=== PATIENT | female | born 1955 | race Caucasian/White ===

== ENCOUNTER 2018-03-15 05:56 | Observation (INO) | payer OTHER ==
[2018-03-14 15:59] VITALS: BP 133/63
[2018-03-14 16:06] LABS: BASOPHILS % (AUTO) 0.8 % (0.0-5.0); EOSINOPHILS % (AUTO) 1.9 % (0.0-8.0); HEMATOCRIT 43.2 % (36-48); LYMPHOCYTES % (AUTO) 32.8 % (21.0-51.0); MEAN CORPUSCULAR HEMOGLOBIN 29.6 pg (27.0-33.0); MEAN CORPUSCULAR HGB CONC 33.5 g/dL (32.0-36.0); MEAN CORPUSCULAR VOLUME 88.2 fL (79-99); MONOCYTES % (AUTO) 6.1 % (3.0-13.0); NEUTROPHILS % (AUTO) 58.4 % (40.0-77.0); PLATELET COUNT (AUTO) 315 K/uL (130-400); RED CELL DISTRIBUTION WIDTH 13.8 % (11.0-15.5); WHITE BLOOD COUNT (AUTO) 10.6 K/uL (4.8-10.8)
[2018-03-15] VITALS (20 sets, daily range): BP systolic 102–164; BP diastolic 46–83
[~2018-03-15] VITALS: Ht 154.9 cm; Wt 95.0 kg
[~2018-03-15 05:56] MED LIST: AMIT25TA9 PO; FURO20TA4 PO; LISI-613 PO; PITA4TAB2 PO; SITA100T12 PO
[2018-03-15 06:43] LABS: CREATININE 0.7 mg/dL (0.5-1.5); POTASSIUM 4.1 mmol/L (3.5-5.1)
[2018-03-15] MEDS ORDERED: SODIUM CHLORIDE 0.9% 1000ML 1,000 ML IV ONE (07:01)
[2018-03-15] MEDS ORDERED: SCOPOLAMINE HYDROBROMIDE 1 EACH ADH..PATCH TD ONE (07:15)
[2018-03-15] MEDS ORDERED: CALDOLOR 800MG+NS 250ML 250 ML IV ONE (07:21)
[2018-03-15] MEDS: CEFAZOLIN SODIUM 1 GM VIAL ONE ×2 (07:32→09:44)
[2018-03-15] MEDS ORDERED: MIDAZOLAM HCL 1 MG/ML 2ML VIAL ONE ×3 (07:51→11:52)
[2018-03-15] MEDS ORDERED: AMIT50TA3 PO (07:57)
[2018-03-15] MEDS ORDERED: CEFAZOLIN 3GM /D5W 100ML 100 ML IV PRN (08:00)
[2018-03-15] MEDS ORDERED: LIDOCAINE PF 2% 5ML ABBOJECT ONE (08:34)
[2018-03-15] MEDS ORDERED: FENTANYL CITRATE PF 50 MCG/1 ML 5ML AMP IV ONE (08:35)
[2018-03-15] MEDS ORDERED: PROPOFOL 10 MG/ML 20ML VIAL IV ONE (08:35)
[2018-03-15] MEDS ORDERED: ROCURONIUM 10MG/1ML SYR 10 MG/ML ML ONE (08:39)
[2018-03-15] MEDS ORDERED: GLYCOPYRROLATE 1 MG/5 ML SYRINGE ONE (08:39)
[2018-03-15] MEDS ORDERED: NEOSTIGMINE 5MG/5ML SYR IV ONE (08:39)
[2018-03-15] MEDS ORDERED: ONDANSETRON HCL 4 MG/2 ML VIAL ONE ×2 (08:58→10:46)
[2018-03-15] MEDS ORDERED: ESTROGENS,CONJUGATED 0.625 MG/GM 42.5 GM VAG CRM VG ONE (10:07)
[2018-03-15] MEDS ORDERED: SCOPOLAMINE HYDROBROMIDE 1 EACH ADH..PATCH TD SCH (10:30)
[2018-03-15] MEDS ORDERED: BUPIVACAINE/PF 0.25% 50ML VIAL IJ ONE (10:41)
[2018-03-15] MEDS ORDERED: FENTANYL 50 MCG/HR PATCH TD ONE (11:04)
[2018-03-15] MEDS ORDERED: HYDROMORPHONE 1 MG/1 ML AMP ONE (11:06)
[2018-03-15] MEDS ORDERED: OPIUM/BELLADONNA ALKALOIDS 1 EACH SUPP.RECT RC ONE (11:32)
[2018-03-15] MEDS ORDERED: HYDROCODONE/ACETAMINOPHEN 5/325 MG TAB PO PRN ×2 (13:00)
[2018-03-15] MEDS: SODIUM CHLORIDE 0.9% 1000ML 1,000 ML IV SCH ×2 (14:38→19:07)
[2018-03-15] MEDS: MEPERIDINE-PF 50 MG/ML SYG IM PRN ×2 (14:44→19:09)
[2018-03-15] MEDS: PROMETHAZINE HCL 25 MG/ML 1ML AMPULE IM PRN ×2 (14:44→19:10)
[2018-03-15] MEDS: CALDOLOR 800MG+NS 250ML 250 ML IV SCH (19:06)
[2018-03-15] MEDS: CYCLOBENZAPRINE HCL 10 MG TABLET PO PRN (20:55)
[2018-03-16 00:03] VITALS: BP 121/60
[2018-03-16] MEDS: PROMETHAZINE HCL 25 MG/ML 1ML AMPULE IM PRN ×2 (00:21→06:38)
[2018-03-16] MEDS: MEPERIDINE-PF 50 MG/ML SYG IM PRN ×2 (00:22→06:37)
[2018-03-16] MEDS ORDERED: CALDOLOR 800MG+NS 250ML 250 ML IV ONE (02:56)
[2018-03-16] MEDS: CALDOLOR 800MG+NS 250ML 250 ML IV SCH (02:58)
[2018-03-16] MEDS: SODIUM CHLORIDE 0.9% 1000ML 1,000 ML IV SCH (03:23)
[2018-03-16 03:40] VITALS: BP 113/57
[2018-03-16 07:13] VITALS: BP 100/50
[2018-03-16] MEDS ORDERED: LISINOPRIL 20 MG TABLET PO SCH (08:00)
[2018-03-16] MEDS: CYCLOBENZAPRINE HCL 10 MG TABLET PO PRN (08:34)
[2018-03-16] MEDS ORDERED: AMITRIPTYLINE HCL 25 MG TABLET PO SCH (09:00)
[2018-03-16] MEDS ORDERED: FUROSEMIDE 20 MG TABLET PO SCH (09:00)
== END 2018-03-16 11:30 | disposition home or self-care (01) ==
LOC: DAH 05:56 → DAHIP 05:57 → WSH 12:04
PROVIDERS: ADMIT Obstetrics & Gynecology; ATTEND Obstetrics & Gynecology
DX: N39.3 Stress incontinence (female) (male) (principal); N81.6 Rectocele; N81.10 Cystocele, unspecified; N90.60 Unspecified hypertrophy of vulva
CPT/HCPCS: 36415 ×2; 56620; 57260; 80048; 85025; 86850; 86900; 86901; 96365; 96372 ×2; A4218; A4344; A4351; A4510; A4600; G0378 ×30; J0690; J1170; J1741 ×3; J2001; J2175 ×4; J2250 ×3; J2405 ×2; J2550 ×4; J2704; J2710; J3010; J3490 ×2; J7030 ×3

== ENCOUNTER 2019-03-18 13:54 | Emergency (ER) | payer OTHER ==
[~2019-03-18 13:54] MED LIST changes: -AMIT25TA9 PO; +AMIT50TA3 PO
[2019-03-18] MEDS ORDERED: HYDROCODONE/ACETAMINOPHEN 10/325 MG TAB ONE (14:51)
[2019-03-18] MEDS ORDERED: CYCLOBENZAPRINE HCL 10 MG TABLET ONE (14:51)
[2019-03-18] MEDS ORDERED: ONDANSETRON ODT 4 MG TAB ONE (14:53)
== END 2019-03-18 16:39 | disposition home or self-care (01) ==
LOC: EDH 13:54
DX: M25.561 Pain in right knee (principal); E11.9 Type 2 diabetes mellitus without complications; E78.00 Pure hypercholesterolemia, unspecified; I10 Essential (primary) hypertension; Z88.8 Allergy status to other drugs, medicaments and biological substances; Z90.710 Acquired absence of both cervix and uterus; Z98.890 Other specified postprocedural states; Z90.49 Acquired absence of other specified parts of digestive tract
CPT/HCPCS: 73562

== ENCOUNTER 2019-04-16 10:00 | Observation (INO) | payer OTHER ==
[~2019-04-16] VITALS: Ht 154.9 cm; Wt 93.0 kg
[~2019-04-16 10:00] MED LIST changes: -AMIT50TA3 PO; -SITA100T12 PO
[2019-04-16 12:45] VITALS: BP 126/73
[2019-04-16 12:59] LABS: BASOPHILS % (AUTO) 1.1 % (0.0-5.0); EOSINOPHILS % (AUTO) 1.3 % (0.0-8.0); HEMATOCRIT 42.2 % (36-48); LYMPHOCYTES % (AUTO) 35.4 % (21.0-51.0); MEAN CORPUSCULAR HEMOGLOBIN 29.7 pg (27.0-33.0); MEAN CORPUSCULAR HGB CONC 33.6 g/dL (32.0-36.0); MEAN CORPUSCULAR VOLUME 88.6 fL (79-99); MONOCYTES % (AUTO) 5.9 % (3.0-13.0); NEUTROPHILS % (AUTO) 56.3 % (40.0-77.0); PLATELET COUNT (AUTO) 376 K/uL (130-400); RED BLOOD CELL COUNT(AUTO) 4.76 MIL/uL (4.00-5.50); RED CELL DISTRIBUTION WIDTH 14.6 % (11.0-15.5); WHITE BLOOD COUNT (AUTO) 13.5 K/uL (4.8-10.8)
[2019-04-16] MEDS ORDERED: AMIT25TA9 PO (14:28)
[2019-04-16] MEDS ORDERED: PREM125 PO (14:28)
[2019-04-16] MEDS ORDERED: CYAN250010 PO (14:28)
[2019-04-16] MEDS ORDERED: DULA1.5P SQ (14:28)
--- NOTE | 2019-04-17 15:47 | NUR ---
FAXED LABS TO [facility] DUE TO WBC 13.5, NO NEW ORDERS. PER WERO FROM OFFICE
[2019-04-18] VITALS (23 sets, daily range): BP systolic 112–160; BP diastolic 52–97
[2019-04-18] MEDS: CALDOLOR 800MG+NS 250ML 250 ML IV SCH ×4 (06:00→23:56)
[2019-04-18] MEDS: CEFAZOLIN SODIUM 1 GM VIAL IVP SCH ×2 (06:00→07:35)
[2019-04-18] MEDS ORDERED: LACTATED RINGERS 1000ML 1,000 ML IV SCH (06:00)
[2019-04-18] MEDS ORDERED: SODIUM CHLORIDE 0.9% 1000ML 1,000 ML IV ONE (06:27)
[2019-04-18] MEDS ORDERED: PROPOFOL 10 MG/ML 20ML VIAL IV ONE ×2 (07:13→07:28)
[2019-04-18] MEDS ORDERED: ONDANSETRON HCL 4 MG/2 ML VIAL ONE (07:13)
[2019-04-18] MEDS ORDERED: MIDAZOLAM HCL 1 MG/ML 2ML VIAL ONE (07:13)
[2019-04-18] MEDS ORDERED: DEXAMETHASONE SOD PHOSPHATE 10MG/ML 1ML VIAL ONE (07:13)
[2019-04-18] MEDS ORDERED: LIDOCAINE PF 2% 5ML ABBOJECT ONE (07:13)
[2019-04-18] MEDS ORDERED: FENTANYL CITRATE PF 50 MCG/1 ML 2ML VIAL ONE ×2 (07:14→07:47)
[2019-04-18] MEDS ORDERED: ROCURONIUM 10MG/1ML SYR 10 MG/ML ML ONE (07:16)
[2019-04-18] MEDS ORDERED: ROPIVACAINE 0.5% 5MG/ML 30ML IJ ONE (08:29)
[2019-04-18] MEDS ORDERED: GLYCOPYRROLATE 1 MG/5 ML SYRINGE ONE (08:41)
[2019-04-18] MEDS ORDERED: NEOSTIGMINE 5MG/5ML SYR IV ONE (08:41)
[2019-04-18] MEDS ORDERED: MEPERIDINE-PF 25 MG/ML SYG ONE ×5 (09:04→18:51)
[2019-04-18] MEDS ORDERED: MORPHINE SULFATE 2 MG/ML 1ML SYG ONE (09:38)
[2019-04-18] MEDS ORDERED: MEPERIDINE-PF 75 MG/ML SYG IM PRN (10:15)
[2019-04-18] MEDS ORDERED: DiphenhydrAMINE HCL 50 MG/ML VIAL IV PRN ×2 (10:30)
[2019-04-18] MEDS: PROMETHAZINE HCL 25 MG/ML 1ML AMPULE IM PRN ×4 (10:38→23:30)
[2019-04-18] MEDS: MEPERIDINE-PF 50 MG/ML SYG IM PRN ×4 (10:40→23:31)
[2019-04-18] MEDS: INSULIN HUMULIN R 100 UNIT/ML 3ML SQ SCH ×3 (11:30→21:00)
[2019-04-18] MEDS: SODIUM CHLORIDE 0.9% 1000ML 1,000 ML IV SCH (16:03)
--- NOTE | 2019-04-19 02:30 | NUR ---
Activity: Patient assisted to get up in bed ambulated in the Hallway for 15 minutes tolerated it well.
[2019-04-19] MEDS: SODIUM CHLORIDE 0.9% 1000ML 1,000 ML IV SCH (03:08)
[2019-04-19 04:15] VITALS: BP 110/54
[2019-04-19] MEDS: MEPERIDINE-PF 50 MG/ML SYG IM PRN (04:20)
[2019-04-19] MEDS: PROMETHAZINE HCL 25 MG/ML 1ML AMPULE IM PRN (04:21)
--- NOTE | 2019-04-19 06:30 | NUR ---
Joe: Joe Catheter discontinued per M.D. order. Urine clear yellow. Patient tolerated it well.
--- NOTE | 2019-04-19 07:20 | NUR ---
PATIENT ASSESSED AND WAS ASSISTED UP TO BATHROOM AND VOIDED 250CC OF CLEAR YELLOW URINE. INCISION TO ABDOMEN IS UNDER A LARGE FOLD AND AN ABD PAD WAS APPLIED AND REINFORCED CARE OF INCISION. VERBALIZED UNDERSTANDING INSTRUCTIONS GIVEN.
[2019-04-19 07:30] VITALS: BP 122/60
[2019-04-19] MEDS: INSULIN HUMULIN R 100 UNIT/ML 3ML SQ SCH (07:30)
[2019-04-19] MEDS ORDERED: LISINOPRIL 20 MG TABLET PO SCH ×2 (08:00→09:00)
[2019-04-19] MEDS: HYDROCODONE/ACETAMINOPHEN 5/325 MG TAB PO PRN ×2 (08:50→13:50)
[2019-04-19] MEDS ORDERED: **HM** TRULICITY 1.5MG SQ SCH (09:00)
[2019-04-19] MEDS ORDERED: AMITRIPTYLINE HCL 25 MG TABLET PO SCH ×2 (09:00)
[2019-04-19] MEDS ORDERED: ESTROGENS,CONJUGATED 0.625 MG TAB PO SCH (09:00)
[2019-04-19] MEDS ORDERED: FUROSEMIDE 20 MG TABLET PO SCH ×2 (09:00)
[2019-04-19] MEDS ORDERED: LIVALO 4 MG PO SCH (09:00)
--- NOTE | 2019-04-19 09:00 | NUR ---
DR. LUND ROUNDED AND DISCHARGED PATIENT TO HOME. PATIENT INSTRUCTED ON CARE3 AFTER DISCHARGE AND PATIENT VERBALIZED UNDERSTANDING INSTRUCTIONS GIVEN.
--- NOTE | 2019-04-19 14:40 | NUR ---
PATIENT WAS GIVEN DISCHARGE INSTRUCTIONS AND WAS THEN TAKEN VIA W/C TO FAMILY VEHICLE AND WAS DISCHARGED IN STABLE CONDITION. PATIENT INSTRUCTED TO CONTINUE TAKING HER HOME MEDICATIONS AFTER DISCHARGE.
--- NOTE | 2019-04-19 15:40 | NUR ---
PATIENT WAS TAKEN VIA W/C AND WAS DISCHARGED TO HER FAMILY IN STABLE CONDITION.
== END 2019-04-19 15:40 | disposition home or self-care (01) ==
LOC: DAHIP 04-18 05:57 → EDSTATUS 04-18 10:00 → WSH 04-18 10:13
PROVIDERS: ADMIT Obstetrics & Gynecology; ATTEND Obstetrics & Gynecology
DX: N39.3 Stress incontinence (female) (male) (principal); R11.10 Vomiting, unspecified; E66.9 Obesity, unspecified; E11.9 Type 2 diabetes mellitus without complications; M79.7 Fibromyalgia; K66.0 Peritoneal adhesions (postprocedural) (postinfection); I10 Essential (primary) hypertension; Z90.710 Acquired absence of both cervix and uterus; Z90.49 Acquired absence of other specified parts of digestive tract; Z79.899 Other long term (current) drug therapy; Z68.38 Body mass index [BMI] 38.0-38.9, adult
CPT/HCPCS: 36415; 51840; 82948 ×4; 85025; 86850; 86900; 86901; 96361 ×2; 96365; 96366 ×2; 96372 ×2; A4215; A4221; A4222; A4223; A4510; A4600; A4663; A4930; A6260; G0378 ×32; J0690; J1100; J1741 ×4; J2001; J2175 ×10; J2250; J2405; J2550 ×5; J2704 ×2; J2710; J2795; J3010 ×2; J3490; J7030; 96367

== ENCOUNTER → 2019-05-15 | Outpatient (CLI) | payer MEDICARE ==
[~2019-05-15] MED LIST changes: +AMIT25TA9 PO; +CYAN250010 PO; +DULA1.5P SQ; +LIDOCAINE HCL 4% LTA SOL 4 ML VIAL TP ONE; +PREM125 PO
[2019-05-15 16:19] VITALS: BP 114/73
== END | disposition home or self-care (01) ==
LOC: WHH 14:04
PROVIDERS: ATTEND Surgery
DX: T81.31XA Disruption of external operation (surgical) wound, not elsewhere classified, initial encounter (principal); E11.9 Type 2 diabetes mellitus without complications; E66.01 Morbid (severe) obesity due to excess calories; I10 Essential (primary) hypertension; E78.5 Hyperlipidemia, unspecified; Z90.710 Acquired absence of both cervix and uterus; Y83.8 Other surgical procedures as the cause of abnormal reaction of the patient, or of later complication, without mention of misadventure at the time of the procedure; Y92.89 Other specified places as the place of occurrence of the external cause
CPT/HCPCS: 11042; 99215; A4450; A6021; A6197; 99205

== ENCOUNTER → 2019-05-22 | Outpatient (CLI) | payer MEDICARE ==
[~2019-05-22] MED LIST changes: +LIDOCAINE HCL 2% JELLY 5 ML TP ONE; -LIDOCAINE HCL 4% LTA SOL 4 ML VIAL TP ONE
[2019-05-22 12:01] VITALS: BP 137/70
== END | disposition home or self-care (01) ==
LOC: WHH 10:45
PROVIDERS: ATTEND Surgery
DX: T81.31XD Disruption of external operation (surgical) wound, not elsewhere classified, subsequent encounter (principal); E11.9 Type 2 diabetes mellitus without complications; E66.01 Morbid (severe) obesity due to excess calories; I10 Essential (primary) hypertension; E78.5 Hyperlipidemia, unspecified; Z90.710 Acquired absence of both cervix and uterus; Z90.49 Acquired absence of other specified parts of digestive tract; Z79.899 Other long term (current) drug therapy; Y83.8 Other surgical procedures as the cause of abnormal reaction of the patient, or of later complication, without mention of misadventure at the time of the procedure
CPT/HCPCS: 97605

== ENCOUNTER → 2019-06-05 | Outpatient (CLI) | payer MEDICARE ==
[~2019-06-05] MED LIST changes: -LIDOCAINE HCL 2% JELLY 5 ML TP ONE; +LIDOCAINE/PRILOCAINE CREAM 5GM TUBE TP ONE
[2019-06-05 12:29] VITALS: BP 160/72
== END | disposition home or self-care (01) ==
LOC: WHH 10:30
PROVIDERS: ATTEND Surgery
DX: T81.31XD Disruption of external operation (surgical) wound, not elsewhere classified, subsequent encounter (principal); E11.9 Type 2 diabetes mellitus without complications; E66.01 Morbid (severe) obesity due to excess calories; I10 Essential (primary) hypertension; E78.5 Hyperlipidemia, unspecified; Z90.710 Acquired absence of both cervix and uterus; Z90.49 Acquired absence of other specified parts of digestive tract; Z79.899 Other long term (current) drug therapy; Y83.8 Other surgical procedures as the cause of abnormal reaction of the patient, or of later complication, without mention of misadventure at the time of the procedure
CPT/HCPCS: A6022; G0463; J3490

== ENCOUNTER → 2019-06-12 | Outpatient (CLI) | payer MEDICARE ==
[~2019-06-12] MED LIST changes: -LIDOCAINE/PRILOCAINE CREAM 5GM TUBE TP ONE
[2019-06-12 12:49] VITALS: BP 137/79
--- NOTE | 2019-06-12 12:51 | NUR ---
Patient presents to clinic today for wound care. Patient reports that she had a "reaction" to puracol on Sunday through Sunday. She states she removed everything from wound on Sunday and found a rash that was "oozing" so much that dressing was not sticking. Patient reports taking Benadryl x 2 doses (Sunday pm and Sunday) and obtained relief from itching. She states HH nurse went by on Sunday and did not perform the ordered wound care as she felt that was cause of rash and itching episode and she refused. Patient states she has only used saline and clean gauze on wound since Sunday. Dr. Pereira was notified of patient's reports and current wound status. Orders obtained and wound care performed as ordered. Teaching provided re: new wound care order and need for patient to notify [facility] whenever wound issues arise. Patient verbalized understanding. Addendum: 06/12/19 at 1304 by SKYE ORNELAS RN/BEV Amended: Links added.
== END | disposition home or self-care (01) ==
LOC: WHH 10:28
PROVIDERS: ATTEND Emergency Medicine
DX: T81.31XD Disruption of external operation (surgical) wound, not elsewhere classified, subsequent encounter (principal); E11.9 Type 2 diabetes mellitus without complications; E66.01 Morbid (severe) obesity due to excess calories; I10 Essential (primary) hypertension; E78.5 Hyperlipidemia, unspecified; Z90.710 Acquired absence of both cervix and uterus; Z90.49 Acquired absence of other specified parts of digestive tract; Z79.899 Other long term (current) drug therapy; Y83.8 Other surgical procedures as the cause of abnormal reaction of the patient, or of later complication, without mention of misadventure at the time of the procedure
CPT/HCPCS: 99211; G0463

== ENCOUNTER → 2019-06-19 | Outpatient (CLI) | payer MEDICARE ==
[~2019-06-19] MED LIST changes: +LIDOCAINE/PRILOCAINE CREAM 5GM TUBE TP ONE
[2019-06-19 11:42] VITALS: BP 130/68
[2019-06-19 11:48] LABS: BASOPHILS % (AUTO) 0.5 % (0.0-5.0); EOSINOPHILS % (AUTO) 2.5 % (0.0-8.0); LYMPHOCYTES % (AUTO) 32.8 % (21.0-51.0); MEAN CORPUSCULAR HEMOGLOBIN 28.2 pg (27.0-33.0); MEAN CORPUSCULAR HGB CONC 32.6 g/dL (32.0-36.0); MEAN CORPUSCULAR VOLUME 86.5 fL (79-99); MONOCYTES % (AUTO) 7.2 % (3.0-13.0); NEUTROPHILS % (AUTO) 56.6 % (40.0-77.0); PLATELET COUNT (AUTO) 377 K/uL (130-400); RED BLOOD CELL COUNT(AUTO) 4.51 MIL/uL (4.00-5.50); RED CELL DISTRIBUTION WIDTH 13.7 % (11.0-15.5); WHITE BLOOD COUNT (AUTO) 7.9 K/uL (4.8-10.8)
== END | disposition home or self-care (01) ==
LOC: WHH 10:55
PROVIDERS: ATTEND Surgery
DX: T81.89XD Other complications of procedures, not elsewhere classified, subsequent encounter (principal); E11.9 Type 2 diabetes mellitus without complications; I10 Essential (primary) hypertension; E66.01 Morbid (severe) obesity due to excess calories; E78.5 Hyperlipidemia, unspecified; Z90.710 Acquired absence of both cervix and uterus; Z90.49 Acquired absence of other specified parts of digestive tract; Z79.899 Other long term (current) drug therapy; Y83.8 Other surgical procedures as the cause of abnormal reaction of the patient, or of later complication, without mention of misadventure at the time of the procedure
CPT/HCPCS: 36415; 85025; A6209; G0463; J3490

== ENCOUNTER → 2019-07-03 | Outpatient (CLI) | payer MEDICARE ==
[~2019-07-03] MED LIST changes: -LIDOCAINE/PRILOCAINE CREAM 5GM TUBE TP ONE
[2019-07-03 11:22] VITALS: BP 108/65
== END | disposition home or self-care (01) ==
LOC: WHH 10:00
PROVIDERS: ATTEND Surgery
DX: T81.89XD Other complications of procedures, not elsewhere classified, subsequent encounter (principal); E11.9 Type 2 diabetes mellitus without complications; I10 Essential (primary) hypertension; E66.01 Morbid (severe) obesity due to excess calories; E78.5 Hyperlipidemia, unspecified; Z90.710 Acquired absence of both cervix and uterus; Z90.49 Acquired absence of other specified parts of digestive tract; Z79.899 Other long term (current) drug therapy; Y83.8 Other surgical procedures as the cause of abnormal reaction of the patient, or of later complication, without mention of misadventure at the time of the procedure
CPT/HCPCS: A6209; G0463

== ENCOUNTER → 2019-07-10 | Outpatient (CLI) | payer MEDICARE ==
[2019-07-10 13:23] VITALS: BP 153/80
== END | disposition home or self-care (01) ==
LOC: WHH 10:00
PROVIDERS: ATTEND Surgery
DX: T81.89XD Other complications of procedures, not elsewhere classified, subsequent encounter (principal); E11.9 Type 2 diabetes mellitus without complications; I10 Essential (primary) hypertension; E66.01 Morbid (severe) obesity due to excess calories; E78.5 Hyperlipidemia, unspecified; Z90.710 Acquired absence of both cervix and uterus; Z90.49 Acquired absence of other specified parts of digestive tract; Z88.0 Allergy status to penicillin; Z79.899 Other long term (current) drug therapy; Y83.8 Other surgical procedures as the cause of abnormal reaction of the patient, or of later complication, without mention of misadventure at the time of the procedure
CPT/HCPCS: A6209; G0463

== ENCOUNTER → 2019-07-17 | Outpatient (CLI) | payer MEDICARE ==
[~2019-07-17] MED LIST changes: +SILVER NITRATE APPLICATOR 1 SWAB TP ONE
[2019-07-17 13:18] VITALS: BP 134/82
== END | disposition home or self-care (01) ==
LOC: WHH 10:25
PROVIDERS: ATTEND Surgery
DX: T81.89XD Other complications of procedures, not elsewhere classified, subsequent encounter (principal); E11.9 Type 2 diabetes mellitus without complications; I10 Essential (primary) hypertension; E78.5 Hyperlipidemia, unspecified; E66.01 Morbid (severe) obesity due to excess calories; Z79.899 Other long term (current) drug therapy; Z88.0 Allergy status to penicillin; Z90.49 Acquired absence of other specified parts of digestive tract; Z90.710 Acquired absence of both cervix and uterus; Y83.8 Other surgical procedures as the cause of abnormal reaction of the patient, or of later complication, without mention of misadventure at the time of the procedure
CPT/HCPCS: 17250; A6209

== ENCOUNTER 2019-07-24 10:00 | Outpatient (CLI) | payer MEDICARE ==
[~2019-07-24 10:00] MED LIST changes: -SILVER NITRATE APPLICATOR 1 SWAB TP ONE
[2019-07-24 12:49] VITALS: BP 131/83
== END 2019-07-24 14:35 | disposition home or self-care (01) ==
LOC: WHH 10:00
PROVIDERS: ATTEND Surgery
DX: T81.89XD Other complications of procedures, not elsewhere classified, subsequent encounter (principal); E11.9 Type 2 diabetes mellitus without complications; I10 Essential (primary) hypertension; I25.10 Atherosclerotic heart disease of native coronary artery without angina pectoris; E66.01 Morbid (severe) obesity due to excess calories; E78.5 Hyperlipidemia, unspecified; Z79.899 Other long term (current) drug therapy; Z88.0 Allergy status to penicillin; Z90.710 Acquired absence of both cervix and uterus; Z90.49 Acquired absence of other specified parts of digestive tract; Y83.8 Other surgical procedures as the cause of abnormal reaction of the patient, or of later complication, without mention of misadventure at the time of the procedure
CPT/HCPCS: G0463

== ENCOUNTER → 2019-09-12 | Outpatient (CLI) | payer MEDICARE | END | disposition home or self-care (01) | LOC: OIH 12:48 | PROVIDERS: ATTEND Internal Medicine | DX: I50.9 Heart failure, unspecified (principal) | CPT/HCPCS: 71046 ==

== ENCOUNTER → 2019-10-16 | Outpatient (CLI) | payer MEDICARE | END | disposition home or self-care (01) | LOC: RAH 10:37 | PROVIDERS: ATTEND Internal Medicine | DX: N00.9 Acute nephritic syndrome with unspecified morphologic changes (principal) | CPT/HCPCS: 76770 ==

== ENCOUNTER → 2019-11-12 | Outpatient (CLI) | payer MEDICARE | END | disposition home or self-care (01) | LOC: OIH 11:22 | PROVIDERS: ATTEND Internal Medicine | DX: I10 Essential (primary) hypertension (principal); M85.88 Other specified disorders of bone density and structure, other site | CPT/HCPCS: 71046 ==

== ENCOUNTER → 2020-03-30 | Outpatient (CLI) | payer MEDICARE | END | disposition home or self-care (01) | LOC: RAH 14:39 | PROVIDERS: ATTEND Internal Medicine | DX: K43.2 Incisional hernia without obstruction or gangrene (principal) | CPT/HCPCS: 76705 ==

== ENCOUNTER 2020-08-09 13:15 | Inpatient (IN) | payer MEDICARE ==
[~2020-08-09] VITALS: Ht 154.9 cm; Wt 82.1 kg
[~2020-08-09 13:15] MED LIST changes: -LISI-613 PO; +LISI20TA24 PO
[2020-08-09] MEDS ORDERED: LIDOCAINE HCL-MPF 1% 2ML VIAL IJ PRN (14:30)
[2020-08-09] MEDS ORDERED: POTASSIUM CHLORIDE 20MEQ/100ML 100 ML IV PRN (14:30)
[2020-08-09] MEDS ORDERED: ACETAMINOPHEN 325 MG TAB PO PRN (14:30)
[2020-08-09] MEDS ORDERED: DEXTROSE 50%-WATER 50 ML DISP.SYRIN IV PRN (14:30)
[2020-08-09] MEDS ORDERED: CLONIDINE HCL 0.1 MG TABLET PO PRN (14:30)
[2020-08-09] MEDS ORDERED: ZOLPIDEM TARTRATE 5 MG TAB PO PRN (14:30)
[2020-08-09] MEDS ORDERED: POTASSIUM CHLORIDE 10% ELIXIR 20 MEQ/15 ML UDCUP PO PRN (14:30)
[2020-08-09] MEDS ORDERED: 1/2 NS 1000ML 1,000 ML IV SCH (14:30)
[2020-08-09] MEDS ORDERED: GUAIFENESIN-DM 200/20 MG 10 ML PO PRN (14:30)
[2020-08-09] MEDS ORDERED: MAG/ALUM/SIMETH 30 ML UDCUP PO PRN (14:30)
[2020-08-09] MEDS ORDERED: KCL 20 MEQ ERTAB PO PRN (14:30)
[2020-08-09] MEDS ORDERED: GLUCAGON 1MG KIT 1 MG ML IM PRN (14:30)
[2020-08-09] MEDS ORDERED: IPRATROPIUM/ALBUTEROL SULFATE 3 ML SOLUTION IH PRN ×2 (14:30)
[2020-08-09] MEDS ORDERED: ONDANSETRON 4MG INJ IVP PRN (14:30)
[2020-08-09] MEDS ORDERED: DIPHENHYDRAMINE HCL 25 MG CAPSULE PO PRN (14:30)
[2020-08-09] MEDS ORDERED: AZITHROMYCIN 500MG+NS 250ML 250 ML IV ONE (15:00)
[2020-08-09] MEDS ORDERED: AZITHROMYCIN 500MG+NS 250ML 250 ML IV SCH (15:00)
[2020-08-09] MEDS ORDERED: ACETAMINOPHEN 325 MG TAB ONE (15:01)
[2020-08-09] MEDS ORDERED: CEFTRIAXONE 1G VIAL ONE (15:01)
[2020-08-09 15:07] LABS: APPEARANCE,URINE Clear (CLEAR); BASOPHILS % (AUTO) 0.2 % (0.0-5.0); BILIRUBIN,URINE Negative (NEGATIVE); COLOR,URINE Yellow (YELLOW); EOSINOPHILS % (AUTO) 1.9 % (0.0-8.0); GLUCOSE, URINE (UA) Negative (NEGATIVE); HEMATOCRIT 45.3 % (36-48); KETONES,URINE Negative (NEGATIVE); LEUKOCYTE ESTERASE ,URINE Negative (NEGATIVE); LYMPHOCYTES % (AUTO) 39.8 % (21.0-51.0); MEAN CORPUSCULAR HEMOGLOBIN 29.3 pg (27.0-33.0); MEAN CORPUSCULAR HGB CONC 33.6 g/dL (32.0-36.0); MEAN CORPUSCULAR VOLUME 87.5 fL (79-99); MONOCYTES % (AUTO) 5.1 % (3.0-13.0); NEUTROPHILS % (AUTO) 52.5 % (40.0-77.0); NITRATE,URINE Negative (NEGATIVE); OCCULT BLOOD,URINE Negative (NEGATIVE); PLATELET COUNT (AUTO) 398 K/uL (130-400); PROTEIN,URINE Negative (NEGATIVE); RED BLOOD CELL COUNT(AUTO) 5.18 MIL/uL (4.00-5.50); RED CELL DISTRIBUTION WIDTH 13.5 % (11.0-15.5); UROBILINOGEN,URINE 0.2 mg/dL (0.2-1.0); WHITE BLOOD COUNT (AUTO) 12.9 K/uL (4.8-10.8)
[2020-08-09] MEDS ORDERED: ONDANSETRON 4MG INJ ONE ×2 (15:10→21:12)
[2020-08-09 15:52] LABS: CREATININE 0.9 mg/dL (0.5-1.5); POTASSIUM 4.3 mmol/L (3.5-5.1)
[2020-08-09 15:56] LABS: ALBUMIN 3.7 g/dL (3.5-5.0); BILIRUBIN,TOTAL 0.3 mg/dL (0.2-1.0); CRP QUANTITATIVE 5.3 mg/L (0.00-9.0); TOTAL PROTEIN, SERUM 7.6 g/dL (6.0-8.3)
[2020-08-09 16:11] LABS: ERYTHROCYTE SEDIMENTATION RATE 11 MM/HR (0-30)
[2020-08-09] MEDS: INSULIN R PO SSI SQ SCH (16:30)
[2020-08-09] MEDS ORDERED: ALBUTEROL INHALER 90MCG/INH IH SCH (18:00)
[2020-08-09] MEDS ORDERED: IPRATROPIUM/ALBUTEROL SULFATE 3 ML SOLUTION IH SCH (18:00)
[2020-08-09] MEDS ORDERED: HYDROCODONE/ACETAMINOPHEN 5/325 MG TAB ONE (21:12)
[2020-08-09] MEDS ORDERED: VANCOMYCIN 1G/250ML KIT 250 ML IV SCH (22:30)
[2020-08-10] MEDS ORDERED: ZOSYN 3.375GM+NS 50ML 50 ML IV ONE ×4 (01:22→17:03)
[2020-08-10] MEDS ORDERED: ALBUTEROL INHALER 90MCG/INH IH ONE (01:22)
[2020-08-10] MEDS ORDERED: ONDANSETRON 4MG INJ ONE ×3 (03:55→15:31)
[2020-08-10] MEDS ORDERED: HYDROCODONE/ACETAMINOPHEN 5/325 MG TAB ONE ×3 (03:55→17:47)
[2020-08-10] MEDS: ENOXAPARIN SODIUM 40 MG/0.4 ML SYRINGE SQ SCH (09:00)
[2020-08-10] MEDS: ZOSYN 3.375GM+NS 50ML 50 ML IV SCH ×2 (09:00→17:00)
[2020-08-10 09:12] LABS: BASOPHILS % (AUTO) 0.1 % (0.0-5.0); EOSINOPHILS % (AUTO) 2.4 % (0.0-8.0); HEMATOCRIT 39.7 % (36-48); LYMPHOCYTES % (AUTO) 48.7 % (21.0-51.0); MEAN CORPUSCULAR HEMOGLOBIN 28.8 pg (27.0-33.0); MEAN CORPUSCULAR HGB CONC 32.7 g/dL (32.0-36.0); MONOCYTES % (AUTO) 6.3 % (3.0-13.0); NEUTROPHILS % (AUTO) 42.1 % (40.0-77.0); PLATELET COUNT (AUTO) 336 K/uL (130-400); RED BLOOD CELL COUNT(AUTO) 4.51 MIL/uL (4.00-5.50); RED CELL DISTRIBUTION WIDTH 13.7 % (11.0-15.5); WHITE BLOOD COUNT (AUTO) 11.4 K/uL (4.8-10.8)
[2020-08-10 09:19] LABS: CREATININE 0.9 mg/dL (0.5-1.5); POTASSIUM 4.8 mmol/L (3.5-5.1)
[2020-08-10] MEDS ORDERED: FURO40TA5 PO (09:31)
[2020-08-10] MEDS ORDERED: ALPR-410 PO (09:31)
[2020-08-10] MEDS ORDERED: GLIM4TAB36 PO (09:31)
[2020-08-10] MEDS ORDERED: TRAM50TA4 PO (09:31)
[2020-08-10] MEDS ORDERED: LIRA0.6P SQ (09:31)
[2020-08-10] MEDS ORDERED: OMEP40CA21 PO (09:31)
[2020-08-10] MEDS ORDERED: ENOXAPARIN SODIUM 40 MG/0.4 ML SYRINGE SQ ONE (09:43)
[2020-08-10] MEDS ORDERED: SOLU-MEDROL 40MG VIAL IVP SCH (11:00)
[2020-08-10] MEDS: 0.9%NACL 1000ML 1,000 ML IV SCH (11:00)
[2020-08-10 11:47] LABS: AMYLASE 57 U/L (25-115); LIPASE 203 U/L (114-286)
[2020-08-10] MEDS: IPRATROPIUM/ALBUTEROL SULFATE 3 ML SOLUTION IH SCH ×2 (12:00→18:00)
[2020-08-10] MEDS: ALBUTEROL INHALER 90MCG/INH IH SCH ×2 (12:00→18:00)
[2020-08-10] MEDS ORDERED: CEFTRIAXONE 1G VIAL ONE (14:38)
[2020-08-10] MEDS ORDERED: 0.9%NACL 50ML 50 ML IV ONE (14:40)
[2020-08-10 15:51] LABS: ABG BASE EXCESS 1.1 mmol/L (-2.0-3.0); ABG HCO3 26.5 mmol/L (21.0-28.0); ABG OXYGEN SATURATION 96.6 % (95.0-99.0); ABG PCO2 45 mmHg (32-45)
[2020-08-10] MEDS ORDERED: IOHEXOL-350 75 ML VIAL IV ONE (16:38)
[2020-08-10] MEDS ORDERED: 0.9%NACL 1000ML 1,000 ML IV ONE (20:38)
[2020-08-10] MEDS ORDERED: MAGNESIUM CITRATE 296 ML SOLUTION PO ONE (22:15)
[2020-08-10 22:49] LABS: CREATINE KINASE, TOTAL 20 U/L (21-232); LACTATE DEHYDROGENASE 93 U/L (81-234); MYOGLOBIN 20 ng/mL (10-92); TROPONIN I < 0.04 ng/mL (0.00-0.06)
[2020-08-10] MEDS: SOLU-MEDROL 40MG VIAL IVP SCH (23:00)
[2020-08-10] MEDS ORDERED: SOLU-MEDROL 40MG VIAL ONE (23:11)
[2020-08-10] MEDS ORDERED: MAGNESIUM CITRATE 296 ML SOLUTION ONE (23:11)
[2020-08-10 23:25] VITALS: BP 124/70
[2020-08-11] MEDS: ZOSYN 3.375GM+NS 50ML 50 ML IV SCH ×4 (01:15→22:37)
[2020-08-11] MEDS: HYDROCODONE/ACETAMINOPHEN 5/325 MG TAB PO PRN ×4 (02:27→21:00)
[2020-08-11 03:55] VITALS: BP 117/64
[2020-08-11] MEDS: 0.9%NACL 1000ML 1,000 ML IV SCH ×2 (04:42→20:58)
[2020-08-11] MEDS: IPRATROPIUM/ALBUTEROL SULFATE 3 ML SOLUTION IH SCH ×3 (06:00→12:00)
[2020-08-11] MEDS: ALBUTEROL INHALER 90MCG/INH IH SCH ×3 (06:00→12:00)
[2020-08-11 06:14] LABS: HEMATOCRIT 40.3 % (36-48); MEAN CORPUSCULAR HGB CONC 32.3 g/dL (32.0-36.0); MEAN CORPUSCULAR VOLUME 89.8 fL (79-99); RED BLOOD CELL COUNT(AUTO) 4.49 MIL/uL (4.00-5.50); RED CELL DISTRIBUTION WIDTH 13.6 % (11.0-15.5)
[2020-08-11] MEDS: INSULIN R PO SSI SQ SCH ×4 (06:35→21:06)
[2020-08-11 07:03] LABS: ALANINE AMINOTRANSFERASE 32 U/L (12-78); ASPARTATE AMINOTRANSFERASE 22 U/L (10-37); BILIRUBIN,TOTAL 0.3 mg/dL (0.2-1.0); CARBON DIOXIDE 24 mmol/L (21-32); CHLORIDE 103 mmol/L (101-111); CREATINE KINASE, TOTAL 26 U/L (21-232); GLOMERULAR FILTR. RATE CALC 59 mL/min (>60); GLUCOSE,RANDOM 219 mg/dL (70-105); MYOGLOBIN 18 ng/mL (10-92); POTASSIUM 4.7 mmol/L (3.5-5.1); SODIUM SERUM 136 mmol/L (136-145); TOTAL PROTEIN, SERUM 6.5 g/dL (6.0-8.3); TROPONIN I < 0.04 ng/mL (0.00-0.06); UREA NITROGEN, BLOOD 12 mg/dL (7-18)
[2020-08-11 08:05] VITALS: BP 120/60
[2020-08-11] MEDS: SOLU-MEDROL 40MG VIAL IVP SCH ×2 (10:45→22:36)
[2020-08-11] MEDS: ENOXAPARIN SODIUM 40 MG/0.4 ML SYRINGE SQ SCH (10:45)
[2020-08-11 11:13] VITALS: BP 126/63
[2020-08-11 16:33] VITALS: BP 120/53
[2020-08-11] MEDS: CEFTRIAXONE 1G VIAL IVP SCH ×2 (17:03→17:04)
[2020-08-11 20:04] VITALS: BP 105/49
[2020-08-12 00:17] VITALS: BP 131/49
[2020-08-12] MEDS: IPRATROPIUM/ALBUTEROL SULFATE 3 ML SOLUTION IH SCH ×3 (00:56→12:19)
[2020-08-12] MEDS: ZOSYN 3.375GM+NS 50ML 50 ML IV SCH ×2 (01:00→10:46)
[2020-08-12] MEDS: 0.9%NACL 1000ML 1,000 ML IV SCH (03:00)
[2020-08-12 04:13] VITALS: BP 111/50
[2020-08-12] MEDS: INSULIN R PO SSI SQ SCH ×2 (06:04→11:30)
[2020-08-12 07:30] VITALS: BP 115/35
[2020-08-12] MEDS: ENOXAPARIN SODIUM 40 MG/0.4 ML SYRINGE SQ SCH (10:46)
[2020-08-12] MEDS: SOLU-MEDROL 40MG VIAL IVP SCH (10:46)
[2020-08-12] MEDS: HYDROCODONE/ACETAMINOPHEN 5/325 MG TAB PO PRN ×2 (10:57→14:59)
[2020-08-12 11:00] VITALS: BP 134/69
[2020-08-12] MEDS: CEFTRIAXONE 1G VIAL IVP SCH (14:58)
== END 2020-08-12 15:55 | disposition home or self-care (01) | DRG 202 ==
LOC: EDH 13:15 → EDHIP 13:16 → 3BH 08-10 22:34
PROVIDERS: ADMIT Internal Medicine; ATTEND Internal Medicine
DX: J20.9 Acute bronchitis, unspecified (principal); J96.90 Respiratory failure, unspecified, unspecified whether with hypoxia or hypercapnia; M79.7 Fibromyalgia; K59.00 Constipation, unspecified; G89.29 Other chronic pain; F41.9 Anxiety disorder, unspecified; E11.65 Type 2 diabetes mellitus with hyperglycemia; Z20.822 Contact with and (suspected) exposure to COVID-19; E78.5 Hyperlipidemia, unspecified; E78.00 Pure hypercholesterolemia, unspecified; E86.0 Dehydration; I10 Essential (primary) hypertension; Z82.49 Family history of ischemic heart disease and other diseases of the circulatory system; Z88.1 Allergy status to other antibiotic agents; Z88.8 Allergy status to other drugs, medicaments and biological substances; Z90.49 Acquired absence of other specified parts of digestive tract; Z90.710 Acquired absence of both cervix and uterus; Z79.899 Other long term (current) drug therapy
CPT/HCPCS: 36415; 36600; 71046; 71250; 74176; 78582; 80048; 80053; 81003; 82150; 82550; 82728; 82803; 82948; 83615; 83690; 83874; 84484; 85025; 85027; 85378; 85651; 86140; 87040; 87426; 93005; 93970; 94640; 94664; A9540; A9558; G0378; J0456; J0696; J1650; J1815; J2405; J2543; J2920; J7030; Q0163; Q9967; U0003

== ENCOUNTER 2020-09-01 14:29 | Inpatient (IN) | payer MEDICARE ==
[~2020-09-01] VITALS: Ht 154.9 cm; Wt 88.5 kg
[~2020-09-01 14:29] MED LIST changes: +ALPR-410 PO; -DULA1.5P SQ; +FURO40TA5 PO; +GLIM4TAB36 PO; +LIRA0.6P SQ; +OMEP40CA21 PO; +TRAM50TA4 PO
[2020-09-01] MEDS: ENOXAPARIN SODIUM 80 MG/0.8 ML SQ SCH (15:42)
[2020-09-01] MEDS ORDERED: GLUCAGON 1MG KIT 1 MG ML IM PRN (15:45)
[2020-09-01] MEDS ORDERED: NITROGLYCERIN 0.4 MG SL TAB SL PRN (15:45)
[2020-09-01] MEDS ORDERED: DEXTROSE 50%-WATER 50 ML DISP.SYRIN IV PRN (15:45)
[2020-09-01] MEDS ORDERED: ONDANSETRON 4MG INJ IVP PRN (15:45)
[2020-09-01 15:46] LABS: BASOPHILS % (AUTO) 0.5 % (0.0-5.0); EOSINOPHILS % (AUTO) 1.1 % (0.0-8.0); HEMATOCRIT 39.9 % (36-48); LYMPHOCYTES % (AUTO) 33.8 % (21.0-51.0); MEAN CORPUSCULAR HGB CONC 32.6 g/dL (32.0-36.0); MEAN CORPUSCULAR VOLUME 89.1 fL (79-99); MONOCYTES % (AUTO) 5.5 % (3.0-13.0); NEUTROPHILS % (AUTO) 58.4 % (40.0-77.0); PLATELET COUNT (AUTO) 463 K/uL (130-400); RED BLOOD CELL COUNT(AUTO) 4.48 MIL/uL (4.00-5.50); RED CELL DISTRIBUTION WIDTH 13.8 % (11.0-15.5); WHITE BLOOD COUNT (AUTO) 13.2 K/uL (4.8-10.8)
[2020-09-01 15:59] LABS: INR 0.94 (0.85-1.15); PROTHROMBIN TIME 10.3 SEC (9.6-11.6)
[2020-09-01] MEDS: CEFTRIAXONE 1G VIAL IVP SCH (16:00)
[2020-09-01 16:16] LABS: APPEARANCE,URINE Clear (CLEAR); BILIRUBIN,URINE Negative (NEGATIVE); COLOR,URINE Yellow (YELLOW); GLUCOSE, URINE (UA) Negative (NEGATIVE); KETONES,URINE Trace mg/dL (NEGATIVE); LEUKOCYTE ESTERASE ,URINE Negative (NEGATIVE); NITRATE,URINE Negative (NEGATIVE); OCCULT BLOOD,URINE Negative (NEGATIVE); PROTEIN,URINE Negative (NEGATIVE); UROBILINOGEN,URINE 0.2 mg/dL (0.2-1.0)
[2020-09-01] MEDS ORDERED: ENOXAPARIN SODIUM 80 MG/0.8 ML SQ ONE (16:23)
[2020-09-01 16:24] LABS: ALBUMIN 3.2 g/dL (3.5-5.0); BILIRUBIN,TOTAL 0.2 mg/dL (0.2-1.0); CREATININE 0.7 mg/dL (0.5-1.5); CRP QUANTITATIVE 7.3 mg/L (0.00-9.0); POTASSIUM 3.9 mmol/L (3.5-5.1)
[2020-09-01 16:25] LABS: CREATINE KINASE, TOTAL 58 U/L (21-232); MYOGLOBIN 23 ng/mL (10-92); TROPONIN I < 0.04 ng/mL (0.00-0.06)
[2020-09-01] MEDS: INSULIN R PO SSI SQ SCH ×2 (16:30→21:00)
[2020-09-01 16:58] LABS: ERYTHROCYTE SEDIMENTATION RATE 16 MM/HR (0-30)
[2020-09-01] MEDS ORDERED: 0.9%NACL 50ML 50 ML IV ONE (18:13)
[2020-09-01] MEDS ORDERED: CEFTRIAXONE 1G VIAL ONE (18:13)
[2020-09-01] MEDS ORDERED: PANTOPRAZOLE 40 MG/VIAL ONE (20:30)
[2020-09-01 23:41] VITALS: BP 143/79
[2020-09-02] VITALS (7 sets, daily range): BP systolic 99–135; BP diastolic 42–85
[2020-09-02] MEDS: ACETAMINOPHEN 325 MG TAB PO PRN ×3 (02:39→15:47)
[2020-09-02 04:10] LABS: BASOPHILS % (AUTO) 0.4 % (0.0-5.0); EOSINOPHILS % (AUTO) 1.1 % (0.0-8.0); HEMATOCRIT 35.6 % (36-48); MEAN CORPUSCULAR HEMOGLOBIN 29.5 pg (27.0-33.0); MEAN CORPUSCULAR HGB CONC 32.9 g/dL (32.0-36.0); MEAN CORPUSCULAR VOLUME 89.7 fL (79-99); MONOCYTES % (AUTO) 5.6 % (3.0-13.0); NEUTROPHILS % (AUTO) 58.4 % (40.0-77.0); PLATELET COUNT (AUTO) 394 K/uL (130-400); RED BLOOD CELL COUNT(AUTO) 3.97 MIL/uL (4.00-5.50); WHITE BLOOD COUNT (AUTO) 11.6 K/uL (4.8-10.8)
[2020-09-02 04:41] LABS: ALBUMIN 2.7 g/dL (3.5-5.0); BILIRUBIN,TOTAL 0.2 mg/dL (0.2-1.0); CREATININE 0.8 mg/dL (0.5-1.5); CRP QUANTITATIVE 4.3 mg/L (0.00-9.0); POTASSIUM 4.3 mmol/L (3.5-5.1); TOTAL PROTEIN, SERUM 5.9 g/dL (6.0-8.3)
[2020-09-02 05:19] LABS: ERYTHROCYTE SEDIMENTATION RATE 21 MM/HR (0-30)
[2020-09-02] MEDS ORDERED: SOLU-MEDROL 125MG VIAL IVP SCH (06:45)
[2020-09-02] MEDS ORDERED: SOLU-MEDROL 125MG VIAL ONE (06:49)
[2020-09-02] MEDS: INSULIN R PO SSI SQ SCH ×4 (07:30→21:10)
[2020-09-02] MEDS: ENOXAPARIN SODIUM 80 MG/0.8 ML SQ SCH (08:31)
[2020-09-02] MEDS: PANTOPRAZOLE 40 MG TAB DR PO SCH (08:32)
[2020-09-02] MEDS: CEFTRIAXONE 1G VIAL IVP SCH (15:49)
[2020-09-03 04:28] VITALS: BP 120/56
[2020-09-03] MEDS: ACETAMINOPHEN 325 MG TAB PO PRN ×2 (06:38→11:56)
[2020-09-03] MEDS: INSULIN R PO SSI SQ SCH ×4 (06:40→20:47)
[2020-09-03 08:38] VITALS: BP 114/46
[2020-09-03] MEDS: PANTOPRAZOLE 40 MG TAB DR PO SCH (08:56)
[2020-09-03] MEDS: ENOXAPARIN SODIUM 80 MG/0.8 ML SQ SCH (08:57)
[2020-09-03 11:46] VITALS: BP 135/65
[2020-09-03] MEDS: NITROGLYCERIN 1GM OINT 1 INCH/1GM TD SCH ×2 (11:57→18:50)
[2020-09-03] MEDS ORDERED: LINA145C PO (15:24)
[2020-09-03] MEDS ORDERED: MIRA25TA PO (15:24)
[2020-09-03] MEDS ORDERED: APIX5TAB PO (15:42)
[2020-09-03] MEDS ORDERED: CHOL2400 MC (15:42)
[2020-09-03] MEDS ORDERED: CYCL-309 PO (15:42)
[2020-09-03] MEDS ORDERED: ONDA-104 PO (15:42)
[2020-09-03] MEDS ORDERED: LORA10TA7 PO (15:42)
[2020-09-03 16:30] VITALS: BP 115/59
[2020-09-03] MEDS: CEFTRIAXONE 1G VIAL IVP SCH ×2 (18:49→19:03)
[2020-09-03 19:00] VITALS: BP 121/55
[2020-09-03] MEDS ORDERED: TRAMADOL HCL 50 MG TABLET PO ONE (22:15)
[2020-09-03] MEDS ORDERED: TRAMADOL HCL 50 MG TABLET ONE (22:19)
[2020-09-03] MEDS: ZOLPIDEM TARTRATE 5 MG TAB PO PRN (22:43)
[2020-09-04] VITALS (7 sets, daily range): BP systolic 104–122; BP diastolic 43–73
[2020-09-04] MEDS: NITROGLYCERIN 1GM OINT 1 INCH/1GM TD SCH ×3 (02:00→18:31)
[2020-09-04 02:02] LABS: MEAN CORPUSCULAR HEMOGLOBIN 29.8 pg (27.0-33.0); MEAN CORPUSCULAR HGB CONC 33.6 g/dL (32.0-36.0); MEAN CORPUSCULAR VOLUME 88.7 fL (79-99); RED BLOOD CELL COUNT(AUTO) 4.06 MIL/uL (4.00-5.50); RED CELL DISTRIBUTION WIDTH 14.2 % (11.0-15.5); WHITE BLOOD COUNT (AUTO) 12.6 K/uL (4.8-10.8)
[2020-09-04 02:22] LABS: CREATININE 0.8 mg/dL (0.5-1.5); POTASSIUM 4.7 mmol/L (3.5-5.1)
[2020-09-04] MEDS: INSULIN R PO SSI SQ SCH ×4 (06:17→20:50)
[2020-09-04] MEDS ORDERED: LORATADINE 10 MG TABLET PO SCH (09:00)
[2020-09-04] MEDS: FOLIC ACID 1 MG TABLET PO SCH (09:23)
[2020-09-04] MEDS: PANTOPRAZOLE 40 MG TAB DR PO SCH (09:23)
[2020-09-04] MEDS: CYANOCOBALAMIN (VITAMIN B-12) 1,000 MCG TABLET PO SCH (09:23)
[2020-09-04] MEDS: ENOXAPARIN SODIUM 80 MG/0.8 ML SQ SCH (09:24)
[2020-09-04] MEDS ORDERED: CEFTRIAXONE 1G VIAL IVP SCH (19:51)
[2020-09-04] MEDS: ZOLPIDEM TARTRATE 5 MG TAB PO PRN (21:58)
[2020-09-05] VITALS: BP 121/61
[2020-09-05] MEDS: NITROGLYCERIN 1GM OINT 1 INCH/1GM TD SCH (02:00)
[2020-09-05 04:00] VITALS: BP 125/69
[2020-09-05 04:27] LABS: BASOPHILS % (AUTO) 0.4 % (0.0-5.0); EOSINOPHILS % (AUTO) 1.4 % (0.0-8.0); HEMATOCRIT 37.4 % (36-48); LYMPHOCYTES % (AUTO) 42.4 % (21.0-51.0); MEAN CORPUSCULAR HEMOGLOBIN 28.8 pg (27.0-33.0); MEAN CORPUSCULAR HGB CONC 32.1 g/dL (32.0-36.0); MEAN CORPUSCULAR VOLUME 89.7 fL (79-99); MONOCYTES % (AUTO) 7.8 % (3.0-13.0); NEUTROPHILS % (AUTO) 47.2 % (40.0-77.0); PLATELET COUNT (AUTO) 420 K/uL (130-400); RED BLOOD CELL COUNT(AUTO) 4.17 MIL/uL (4.00-5.50); RED CELL DISTRIBUTION WIDTH 14.3 % (11.0-15.5); WHITE BLOOD COUNT (AUTO) 11.5 K/uL (4.8-10.8)
[2020-09-05 04:46] LABS: CREATININE 0.7 mg/dL (0.5-1.5); PHOSPHORUS 4.3 mg/dL (2.5-4.9); POTASSIUM 4.4 mmol/L (3.5-5.1)
[2020-09-05] MEDS: INSULIN R PO SSI SQ SCH ×4 (07:30→21:00)
[2020-09-05 08:00] VITALS: BP 127/72
[2020-09-05] MEDS: FOLIC ACID 1 MG TABLET PO SCH ×2 (09:00→17:15)
[2020-09-05] MEDS: CYANOCOBALAMIN (VITAMIN B-12) 1,000 MCG TABLET PO SCH ×2 (09:00→17:15)
[2020-09-05] MEDS: PANTOPRAZOLE 40 MG TAB DR PO SCH ×2 (09:00→17:15)
[2020-09-05] MEDS: ENOXAPARIN SODIUM 80 MG/0.8 ML SQ SCH ×2 (09:00→17:15)
[2020-09-05] MEDS: ACETAMINOPHEN 325 MG TAB PO PRN (09:31)
[2020-09-05] MEDS: REGADENOSON 0.4 MG/5 ML PF SYG IVP SCH ×2 (10:30→12:15)
[2020-09-05 12:00] VITALS: BP 137/62
[2020-09-05 16:07] VITALS: BP 134/70
[2020-09-05] MEDS: CEFTRIAXONE 1G VIAL IVP SCH (16:46)
[2020-09-05 19:00] VITALS: BP 118/62
[2020-09-05] MEDS ORDERED: ALPRAZOLAM 1 MG TAB PO PRN (22:45)
[2020-09-06] VITALS: BP 139/78
[2020-09-06 04:00] VITALS: BP 128/68
[2020-09-06] MEDS ORDERED: ONDANSETRON 4MG TABLET PO PRN (06:30)
[2020-09-06] MEDS ORDERED: ALPRAZOLAM 0.5 MG TABLET PO PRN (06:30)
[2020-09-06] MEDS ORDERED: CYCLOBENZAPRINE HCL 10 MG TABLET PO PRN (06:30)
[2020-09-06] MEDS ORDERED: BISA5TAB12 PO (06:35)
[2020-09-06] MEDS ORDERED: GLIM2TAB30 PO (06:35)
[2020-09-06] MEDS ORDERED: ALPR0.5T8 PO (06:35)
[2020-09-06] MEDS: INSULIN R PO SSI SQ SCH ×2 (07:08→11:30)
[2020-09-06] MEDS ORDERED: LISINOPRIL 20 MG TABLET PO SCH (08:00)
[2020-09-06] MEDS ORDERED: NON-FORMULARY MEDICATION 1 EACH (Omeprazole 40 MG) PO SCH (08:00)
[2020-09-06] MEDS ORDERED: GLIMEPIRIDE 2 MG TABLET PO SCH (09:00)
[2020-09-06] MEDS ORDERED: PITAVASTATIN CALCIUM 4 MG PO SCH (09:00)
[2020-09-06] MEDS ORDERED: LORATADINE 10 MG TABLET PO SCH (09:00)
[2020-09-06] MEDS ORDERED: AMITRIPTYLINE 25 MG TABLET PO SCH (09:00)
[2020-09-06] MEDS ORDERED: FUROSEMIDE 40 MG TABLET PO SCH (09:00)
[2020-09-06] MEDS ORDERED: BISACODYL 5 MG TABLET.DR PO SCH (09:00)
[2020-09-06] MEDS: FOLIC ACID 1 MG TABLET PO SCH (09:25)
[2020-09-06] MEDS: CYANOCOBALAMIN (VITAMIN B-12) 1,000 MCG TABLET PO SCH (09:27)
[2020-09-06] MEDS: PANTOPRAZOLE 40 MG TAB DR PO SCH (09:27)
[2020-09-06] MEDS: ENOXAPARIN SODIUM 80 MG/0.8 ML SQ SCH (09:30)
[2020-09-06 09:40] VITALS: BP 142/61
[2020-09-06 12:22] VITALS: BP 142/69
== END 2020-09-06 16:29 | disposition home or self-care (01) | DRG 205 ==
LOC: EDH 14:29 → OBSVTOIN 14:30 → EDHIP 14:30 → 4BH 23:30
PROVIDERS: ADMIT Internal Medicine; ATTEND Internal Medicine
DX: M94.0 Chondrocostal junction syndrome [Tietze] (principal); J96.01 Acute respiratory failure with hypoxia; M79.7 Fibromyalgia; I25.10 Atherosclerotic heart disease of native coronary artery without angina pectoris; E66.9 Obesity, unspecified; E11.9 Type 2 diabetes mellitus without complications; E78.5 Hyperlipidemia, unspecified; F41.9 Anxiety disorder, unspecified; I10 Essential (primary) hypertension; J40 Bronchitis, not specified as acute or chronic; K21.9 Gastro-esophageal reflux disease without esophagitis; K44.9 Diaphragmatic hernia without obstruction or gangrene; M32.9 Systemic lupus erythematosus, unspecified; Z68.34 Body mass index [BMI] 34.0-34.9, adult; Z20.822 Contact with and (suspected) exposure to COVID-19; Z79.01 Long term (current) use of anticoagulants; Z79.82 Long term (current) use of aspirin; Z86.711 Personal history of pulmonary embolism; Z87.01 Personal history of pneumonia (recurrent); Z90.710 Acquired absence of both cervix and uterus; Z91.041 Radiographic dye allergy status; Z88.8 Allergy status to other drugs, medicaments and biological substances
CPT/HCPCS: 36415; 70450; 70544; 70551; 71046; 71250; 78452; 80048; 80053; 81003; 82550; 82948; 83605; 83735; 83874; 83880; 84100; 84484; 85025; 85027; 85378; 85610; 85612; 85613; 85651; 85730; 86038; 86140; 86147; 86148; 86215; 86235; 87040; 87426; 87804; 93005; 93017; 93306; 93356; 93970; 96374; A9500; C9113; G0378; J0696; J1650; J1815; J2405; J2785; J2930; U0003

== ENCOUNTER → 2020-11-08 | Outpatient (CLI) | payer MEDICARE ==
[~2020-11-08] MED LIST changes: -ALPR-410 PO; +ALPR0.5T8 PO; +APIX5TAB PO; +BISA5TAB12 PO; +CYCL10TA7 PO; -FURO20TA4 PO; +GLIM2TAB30 PO; -GLIM4TAB36 PO; +LINA145C PO; +LORA10TA7 PO; +MIRA25TA PO; +OMEP40CA13 PO; -OMEP40CA21 PO; +ONDA-104 PO
== END | disposition home or self-care (01) ==
LOC: RAH 08:25
PROVIDERS: ATTEND Surgery
DX: K57.30 Diverticulosis of large intestine without perforation or abscess without bleeding (principal); Z48.817 Encounter for surgical aftercare following surgery on the skin and subcutaneous tissue; Z90.710 Acquired absence of both cervix and uterus; Z90.49 Acquired absence of other specified parts of digestive tract
CPT/HCPCS: 74176

== ENCOUNTER → 2021-04-08 | Outpatient (CLI) | payer MEDICARE ==
[~2021-04-08] MED LIST changes: -OMEP40CA13 PO; +OMEP40CA21 PO
== END | disposition home or self-care (01) ==
LOC: RAH 10:34
PROVIDERS: ATTEND Internal Medicine
DX: M41.86 Other forms of scoliosis, lumbar region (principal); M25.78 Osteophyte, vertebrae
CPT/HCPCS: 72082

== ENCOUNTER → 2021-06-07 | Outpatient (CLI) | payer MEDICARE ==
[~2021-06-07] MED LIST changes: +CYCL-309 PO; -CYCL10TA7 PO
== END | disposition home or self-care (01) ==
LOC: OIH 12:31
PROVIDERS: ATTEND Internal Medicine
DX: J45.991 Cough variant asthma (principal)
CPT/HCPCS: 71046

== ENCOUNTER → 2022-04-21 | Outpatient (CLI) | payer MEDICARE ==
[~2022-04-21] MED LIST changes: -ALPR0.5T8 PO; -BISA5TAB12 PO; -CYAN250010 PO; +FURO20TA4 PO; -FURO40TA5 PO; -LINA145C PO; -LIRA0.6P SQ; -LORA10TA7 PO; -MIRA25TA PO; -ONDA-104 PO; -PREM125 PO; -TRAM50TA4 PO
== END | disposition home or self-care (01) ==
LOC: RAH 08:39
PROVIDERS: ATTEND Internal Medicine
DX: R06.02 Shortness of breath (principal)
CPT/HCPCS: 71046; 71100

== ENCOUNTER 2023-01-10 17:40 | Emergency (ER) | payer MEDICARE ==
[~2023-01-10] VITALS: Ht 149.9 cm; Wt 82.1 kg
[2023-01-10 18:27] LABS: BASOPHILS % (AUTO) 0.4 % (0.0-5.0); EOSINOPHILS % (AUTO) 0.4 % (0.0-8.0); HEMATOCRIT 36.6 % (36-48); LYMPHOCYTES % (AUTO) 10.7 % (21.0-51.0); MEAN CORPUSCULAR HEMOGLOBIN 28.4 pg (27.0-33.0); MEAN CORPUSCULAR HGB CONC 31.7 g/dL (32.0-36.0); MEAN CORPUSCULAR VOLUME 89.7 fL (79-99); MONOCYTES % (AUTO) 6.2 % (3.0-13.0); NEUTROPHILS % (AUTO) 79.6 % (40.0-77.0); PLATELET COUNT (AUTO) 358 K/uL (130-400); RED BLOOD CELL COUNT(AUTO) 4.08 MIL/uL (4.00-5.50); RED CELL DISTRIBUTION WIDTH 15.1 % (11.0-15.5); WHITE BLOOD COUNT (AUTO) 16.4 K/uL (4.8-10.8)
[2023-01-10 18:39] LABS: CREATININE 1.1 mg/dL (0.5-1.5); INR 0.93 (0.85-1.15); POTASSIUM 3.6 mmol/L (3.5-5.1)
[2023-01-10 18:51] LABS: ALBUMIN 2.8 g/dL (3.5-5.0); TOTAL PROTEIN, SERUM 6.4 g/dL (6.0-8.3)
[2023-01-10] MEDS ORDERED: LIDOCAINE HCL 2% VISCOUS 15 ML UDCUP PO ONE (20:00)
[2023-01-10] MEDS ORDERED: MORPHINE 4 MG SYG IVP ONE (20:30)
[2023-01-10] MEDS ORDERED: ONDANSETRON 4MG INJ IVP ONE (20:30)
[2023-01-10] MEDS ORDERED: NEOM28OI48 TP (21:24)
[2023-01-10 21:33] VITALS: BP 168/72
== END 2023-01-10 22:23 | disposition home or self-care (01) ==
LOC: EDH 17:40
DX: S80.01XA Contusion of right knee, initial encounter (principal); E11.9 Type 2 diabetes mellitus without complications; E78.00 Pure hypercholesterolemia, unspecified; I10 Essential (primary) hypertension; Z79.01 Long term (current) use of anticoagulants; Z79.899 Other long term (current) drug therapy; Z88.1 Allergy status to other antibiotic agents; Z88.6 Allergy status to analgesic agent; Z88.8 Allergy status to other drugs, medicaments and biological substances; Z90.49 Acquired absence of other specified parts of digestive tract; W18.39XA Other fall on same level, initial encounter; Y93.89 Activity, other specified; Y92.89 Other specified places as the place of occurrence of the external cause; Y99.8 Other external cause status
CPT/HCPCS: 99285; 96374; 96375; 82550; 83874; 84484; 80053; 85025; 85610; 85730; 36415; 73562; 93005; J2405; J2270

== ENCOUNTER 2023-01-12 16:15 | Observation (INO) | payer MEDICARE ==
[~2023-01-12] VITALS: Ht 152.4 cm; Wt 82.1 kg
[~2023-01-12 16:15] MED LIST changes: +NEOM28OI48 TP
[2023-01-12] MEDS: 1/2 NS 1000ML 1,000 ML IV SCH (18:00)
[2023-01-12] MEDS ORDERED: ACETAMINOPHEN 325 MG TAB PO PRN ×2 (18:00)
[2023-01-12] MEDS ORDERED: ONDANSETRON 4MG INJ IVP PRN (18:00)
[2023-01-12 18:38] VITALS: BP 157/86; PULSE 91; RESP 18
[2023-01-12 18:38] LABS: MEAN CORPUSCULAR HEMOGLOBIN 28.8 pg (27.0-33.0); MEAN CORPUSCULAR VOLUME 92.9 fL (79-99); PLATELET COUNT (AUTO) 374 K/uL (130-400); RED CELL DISTRIBUTION WIDTH 15.8 % (11.0-15.5); WHITE BLOOD COUNT (AUTO) 15.1 K/uL (4.8-10.8)
[2023-01-12 18:57] LABS: POTASSIUM 3.7 mmol/L (3.5-5.1)
[2023-01-12 19:07] LABS: ALBUMIN 2.8 g/dL (3.5-5.0); CRP QUANTITATIVE 11.1 mg/L (0.00-9.0); EOSINOPHILS % (MANUAL) 1 % (1-6); LYMPHOCYTES % (MANUAL) 23 % (22-44); MONOCYTES % (MANUAL) 9 % (2-9); REACTIVE LYMPHOCYTES 1 % (0-0); SEGMENTED NEUTROPHILS % 66 % (40-70); TOTAL PROTEIN, SERUM 6.7 g/dL (6.0-8.3)
[2023-01-12 19:08] LABS: MAN.DIFF COMMENT-IMPRESSION MANUAL DIFFERENTIAL; PLATELET MORPHOLOGY COMMENT ADEQUATE
[2023-01-12] MEDS ORDERED: APIX5TAB PO (19:14)
[2023-01-12] MEDS ORDERED: OXYC20TA41 PO (19:14)
[2023-01-12] MEDS ORDERED: ALPR0.5T8 PO (19:14)
[2023-01-12] MEDS ORDERED: LINA145C PO (19:14)
[2023-01-12] MEDS ORDERED: CIPR500T10 PO (19:14)
[2023-01-12] MEDS ORDERED: ONDA4TAB10 PO (19:14)
[2023-01-12] MEDS ORDERED: DICY20TA2 PO (19:14)
[2023-01-12] MEDS ORDERED: TRAM50TA4 PO (19:14)
[2023-01-12] MEDS: HYDROMORPHONE 0.5 MG SYG (0.5MG/0.5ML) IVP PRN ×2 (19:14→22:13)
[2023-01-12] MEDS ORDERED: CYCL-309 PO (19:14)
[2023-01-12] MEDS ORDERED: FURO40TA5 PO (19:14)
[2023-01-12] MEDS ORDERED: TRAZ-258 PO (19:14)
[2023-01-12] MEDS ORDERED: CEFD300C3 PO (19:14)
[2023-01-12] MEDS ORDERED: 0.9%NACL 1000ML 1,000 ML IV SCH (19:25)
[2023-01-12] MEDS ORDERED: OMEP40CA21 PO (19:40)
[2023-01-12] MEDS ORDERED: MAGN400T29 PO (19:40)
[2023-01-12] MEDS ORDERED: PREM125 PO (19:40)
[2023-01-12] MEDS ORDERED: CARAL PO (19:40)
[2023-01-12] MEDS ORDERED: LIRA0.6P2 SQ (19:40)
[2023-01-12] MEDS ORDERED: GLIM4TAB36 PO (19:40)
[2023-01-12 19:44] LABS: ERYTHROCYTE SEDIMENTATION RATE 48 MM/HR (0-30)
[2023-01-12 20:00] VITALS: BP 161/88; PULSE 72; RESP 18
[2023-01-12] MEDS: CEFTRIAXONE 1G VIAL IVPB SCH (20:03)
[2023-01-12] MEDS: FUROSEMIDE 40MG VIAL IV SCH (20:03)
[2023-01-12] MEDS ORDERED: PHARMACY COMMUNICATION MISC SCH (20:30)
[2023-01-12] MEDS: SILVER SULFADIAZINE CREAM 400 GM TP SCH (21:55)
[2023-01-13] VITALS: BP 146/78; PULSE 71; RESP 18
[2023-01-13] MEDS: HYDROMORPHONE 0.5 MG SYG (0.5MG/0.5ML) IVP PRN ×6 (01:56→20:54)
[2023-01-13] MEDS: 1/2 NS 1000ML 1,000 ML IV SCH (02:55)
[2023-01-13 04:00] VITALS: BP 156/78; PULSE 72; RESP 18
[2023-01-13 06:24] LABS: BASOPHILS % (AUTO) 0.5 % (0.0-5.0); EOSINOPHILS % (AUTO) 0.7 % (0.0-8.0); HEMATOCRIT 32.5 % (36-48); LYMPHOCYTES % (AUTO) 15.7 % (21.0-51.0); MEAN CORPUSCULAR HEMOGLOBIN 28.5 pg (27.0-33.0); MEAN CORPUSCULAR HGB CONC 31.1 g/dL (32.0-36.0); MEAN CORPUSCULAR VOLUME 91.5 fL (79-99); MONOCYTES % (AUTO) 6.8 % (3.0-13.0); NEUTROPHILS % (AUTO) 74.1 % (40.0-77.0); PLATELET COUNT (AUTO) 351 K/uL (130-400); RED BLOOD CELL COUNT(AUTO) 3.55 MIL/uL (4.00-5.50); RED CELL DISTRIBUTION WIDTH 15.9 % (11.0-15.5); WHITE BLOOD COUNT (AUTO) 14.8 K/uL (4.8-10.8)
[2023-01-13 06:33] LABS: CREATININE 0.8 mg/dL (0.5-1.5); POTASSIUM 3.5 mmol/L (3.5-5.1)
[2023-01-13] MEDS ORDERED: POTASSIUM CHLORIDE 20MEQ/100ML 100 ML IV PRN (07:30)
[2023-01-13] MEDS ORDERED: POTASSIUM CHLORIDE 10% ELIXIR 20 MEQ/15 ML UDCUP PO PRN (07:30)
[2023-01-13] MEDS ORDERED: KCL 20 MEQ ERTAB PO PRN (07:30)
[2023-01-13 08:00] VITALS: BP 160/82; PULSE 74; RESP 18
[2023-01-13 08:59] LABS: ERYTHROCYTE SEDIMENTATION RATE 36 MM/HR (0-30)
[2023-01-13] MEDS: ENOXAPARIN SODIUM 40 MG/0.4 ML SYRINGE SQ SCH (09:27)
[2023-01-13] MEDS: FUROSEMIDE 40MG VIAL IV SCH ×2 (09:27→20:20)
[2023-01-13] MEDS: SILVER SULFADIAZINE CREAM 400 GM TP SCH ×2 (09:29→21:47)
[2023-01-13] MEDS ORDERED: IOHEXOL 350 MG/ML 100ML INFUS..BTL IV ONE (11:47)
[2023-01-13 12:00] VITALS: BP 146/81; PULSE 76; RESP 19
[2023-01-13] MEDS ORDERED: RENAL DOSE IV PRN (14:00)
[2023-01-13] MEDS ORDERED: VANCOMYCIN PROTOCOL PER PHARMACY IV SCH (15:00)
[2023-01-13 16:00] VITALS: BP 172/97; PULSE 94; RESP 20
[2023-01-13] MEDS: VANCOMYCIN 750MG VIAL IVPB SCH (17:16)
[2023-01-13 20:00] VITALS: BP 158/78; PULSE 81; RESP 18
[2023-01-13] MEDS: CEFTRIAXONE 1G VIAL IVPB SCH (20:20)
[2023-01-14] VITALS: BP 161/88; PULSE 76; RESP 20
[2023-01-14] MEDS: HYDROMORPHONE 0.5 MG SYG (0.5MG/0.5ML) IVP PRN ×4 (00:07→09:42)
[2023-01-14] MEDS: VANCOMYCIN 750MG VIAL IVPB SCH (03:03)
[2023-01-14 04:00] VITALS: BP 162/89; PULSE 76; RESP 18
[2023-01-14 08:00] VITALS: BP 170/70; PULSE 79; RESP 18
[2023-01-14] MEDS: ENOXAPARIN SODIUM 40 MG/0.4 ML SYRINGE SQ SCH (09:00)
[2023-01-14] MEDS: FUROSEMIDE 40MG VIAL IV SCH (09:42)
[2023-01-14] MEDS: SILVER SULFADIAZINE CREAM 400 GM TP SCH (09:43)
== END 2023-01-14 11:55 | disposition home or self-care (01) ==
LOC: EDH 16:15 → 4BH 16:27
PROVIDERS: ADMIT Internal Medicine; ATTEND Internal Medicine
DX: S80.01XA Contusion of right knee, initial encounter (principal); S80.11XA Contusion of right lower leg, initial encounter; L03.115 Cellulitis of right lower limb; I13.0 Hypertensive heart and chronic kidney disease with heart failure and stage 1 through stage 4 chronic kidney disease, or unspecified chronic kidney disease; I50.32 Chronic diastolic (congestive) heart failure; N18.31 Chronic kidney disease, stage 3a; E11.22 Type 2 diabetes mellitus with diabetic chronic kidney disease; I34.0 Nonrheumatic mitral (valve) insufficiency; I26.99 Other pulmonary embolism without acute cor pulmonale; M32.9 Systemic lupus erythematosus, unspecified; M79.7 Fibromyalgia; E66.9 Obesity, unspecified; E78.5 Hyperlipidemia, unspecified; F32.A Depression, unspecified; Z79.01 Long term (current) use of anticoagulants; Z86.711 Personal history of pulmonary embolism; Z86.718 Personal history of other venous thrombosis and embolism; Z90.49 Acquired absence of other specified parts of digestive tract; Z90.710 Acquired absence of both cervix and uterus; Z79.899 Other long term (current) drug therapy; Z98.890 Other specified postprocedural states; Z68.35 Body mass index [BMI] 35.0-35.9, adult; Z98.891 History of uterine scar from previous surgery; W01.0XXA Fall on same level from slipping, tripping and stumbling without subsequent striking against object, initial encounter; Y92.89 Other specified places as the place of occurrence of the external cause; Y93.89 Activity, other specified; Y99.8 Other external cause status
CPT/HCPCS: G0379 ×101; 36415; 71045; 73721; 78582; 80048; 80053; 82550; 82948; 83605; 83874; 84484; 85025; 85651; 86140; 87040; 93005; 93970; 96365; 96366; 96367; 96372; 96375; 96376; A9540; A9558; G0378; J0696; J1170; J1650; J1940; Q9967; J3370